=== PATIENT | female | born 1995 | race Caucasian/White ===

== ENCOUNTER → 2017-07-08 | Outpatient (CLI) | payer MEDICAID ==
[~2017-07-08] MED LIST: AMOXICILLIN 50500 MG PO; LORTAB 5/500 501 TAB PO; MAGIC MOUTHWASH1 M1 PO; NO HOME MEDICATIONS; NORCO 325 MG-7.1 TAB PO; NYSTATIN 100MU/ML PO; PEN-VEE K500 MG PO; PHENERGAN 25 TA25 MG PO; PRENATAL PLUS1 TA2 PO; ULTRAM 50MG TAB50 MG PO
[2017-07-08 13:05] LABS: BASO # 0.1 (0.0-0.2); BASO % 0.8 % (0.0-2.0); EOS # 0.2 (0.0-0.7); EOS % 1.8 % (0-4.0); GRAN # 7.4 (1.4-6.5); GRAN % 73.8 % (42.2-75.2); HEMATOCRIT 44.7 % (37.0-47.0); HEMOGLOBIN 15.1 g/dl (12.5-16.0); LYMPH # 1.7 (1.2-3.4); LYMPH % 16.5 % (20.0-51.0); MEAN CELL VOLUME 91 fl (80.0-100.0); MEAN CORPUSCULAR HEMOGLOBIN 31 pg (27.0-31.0); MEAN CORPUSCULAR HGB CONC 34 g/dl (33.0-37.0); MEAN PLATELET VOLUME 12.1 fl (7.4-10.4); MONO # 0.6 (0.1-0.6); MONO % 6.3 % (1.7-9.3); PLATELET COUNT 182 K/mm3 (130-400); RED BLOOD COUNT 4.89 M/mm3 (4.10-5.30); REDCELL DISTRIBUTION WIDTH-CV 13.6 % (11.5-14.5)
[2017-07-08 13:11] LABS: ALBUMIN 4.4 gm/dL (3.5-5.0); BILIRUBIN,TOTAL 0.3 mg/dL (0.0-1.0); CALCIUM 9.5 mg/dL (8.4-10.2); CREATININE, serum 0.69 mg/dL (0.52-1.25); POTASSIUM 4.2 mmol/L (3.4-5.0); TOTAL PROTEIN 7.7 gm/dL (6.4-8.2)
== END ==
LOC: COL.LAB 12:03
PROVIDERS: Psychiatry & Neurology Psychiatry
DX: Z79.899 Other long term (current) drug therapy (principal)

== ENCOUNTER 2018-04-18 12:32 | Emergency (ER) | payer MEDICAID ==
[~2018-04-18] VITALS: Ht 157.5 cm; Wt 43.2 kg
[2018-04-18] MEDS ORDERED: TYLENOL 325MG325 MG PO (14:11)
[2018-04-18] MEDS ORDERED: ADVIL200 MG PO (14:12)
[2018-04-18] MEDS ORDERED: LEXAPRO 10MG10 MG PO (14:13)
[2018-04-18 14:14] LABS: BASO # 0.1 (0.0-0.2); BASO % 0.9 % (0.0-2.0); EOS # 0.1 (0.0-0.7); EOS % 1.6 % (0-4.0); GRAN # 4.4 (1.4-6.5); GRAN % 53.3 % (42.2-75.2); HEMATOCRIT 40.2 % (37.0-47.0); HEMOGLOBIN 13.7 g/dl (12.5-16.0); LYMPH # 3.1 (1.2-3.4); LYMPH % 37.4 % (20.0-51.0); MEAN CELL VOLUME 92 fl (80.0-100.0); MEAN CORPUSCULAR HEMOGLOBIN 31 pg (27.0-31.0); MEAN CORPUSCULAR HGB CONC 34 g/dl (33.0-37.0); MEAN PLATELET VOLUME 10.3 fl (7.4-10.4); MONO # 0.5 (0.1-0.6); MONO % 6.6 % (1.7-9.3); PLATELET COUNT 226 K/mm3 (130-400); RED BLOOD COUNT 4.39 M/mm3 (4.10-5.30); REDCELL DISTRIBUTION WIDTH-CV 13.2 % (11.5-14.5)
[2018-04-18] MEDS ORDERED: APRESOLINE 25MG25 MG PO (14:14)
[2018-04-18 14:27] LABS: ALBUMIN 3.9 gm/dL (3.5-5.0); BILIRUBIN,TOTAL 0.4 mg/dL (0.0-1.0); CALCIUM 9.3 mg/dL (8.4-10.2); CREATININE, serum 0.64 mg/dL (0.52-1.25); POTASSIUM 3.7 mmol/L (3.4-5.0); TOTAL PROTEIN 6.8 gm/dL (6.4-8.2)
[2018-04-18 14:32] LABS: MONOSCREEN NEGATIVE
[2018-04-18 15:38] VITALS: BP 103/63; PULSE 94; TEMP 98.5
== END 2018-04-18 15:45 | disposition home or self-care (01) ==
LOC: COL.ER 12:32
PROVIDERS: Nurse Practitioner
DX: R59.0 Localized enlarged lymph nodes (principal); J06.9 Acute upper respiratory infection, unspecified; F41.9 Anxiety disorder, unspecified; F17.210 Nicotine dependence, cigarettes, uncomplicated
CPT/HCPCS: J1885; J7030

== ENCOUNTER 2018-06-23 03:23 | Emergency (ER) | payer MEDICAID ==
[~2018-06-23] VITALS: Ht 157.5 cm; Wt 46.4 kg
[~2018-06-23 03:23] MED LIST changes: +ADVIL200 MG PO; +APRESOLINE 25MG25 MG PO; +LEXAPRO 10MG10 MG PO; +TYLENOL 325MG325 MG PO
[2018-06-23 03:27] VITALS: BP 114/78; TEMP 98.5
[2018-06-23] MEDS ORDERED: ABILIFY 10MG TA10 MG PO (03:36)
[2018-06-23] MEDS ORDERED: TUSS PO (05:20)
[2018-06-23 05:25] VITALS: PULSE 84
== END 2018-06-23 05:25 | disposition home or self-care (01) ==
LOC: COL.ER 03:23
DX: J06.9 Acute upper respiratory infection, unspecified (principal); R59.9 Enlarged lymph nodes, unspecified; F17.210 Nicotine dependence, cigarettes, uncomplicated

== ENCOUNTER 2018-06-25 06:16 | Emergency (ER) | payer MEDICAID ==
[~2018-06-25] VITALS: Ht 157.5 cm; Wt 47.3 kg
[~2018-06-25 06:16] MED LIST changes: +ABILIFY 10MG TA10 MG PO; +TUSS PO
[2018-06-25 06:24] VITALS: BP 107/55; PULSE 115; TEMP 98.3
== END 2018-06-25 06:53 | disposition left against medical advice (07) ==
LOC: COL.ER 06:16
DX: R07.0 Pain in throat (principal)

== ENCOUNTER 2018-08-13 08:12 | Emergency (ER) | payer SELFPAY ==
[~2018-08-13] VITALS: Ht 157.5 cm; Wt 56.8 kg
[2018-08-13 08:17] VITALS: BP 126/94; PULSE 115; TEMP 98.8
[2018-08-13] MEDS ORDERED: AMOXICILLIN875 MG PO (09:12)
== END 2018-08-13 10:04 | disposition home or self-care (01) ==
LOC: COL.ER 08:12
DX: J02.0 Streptococcal pharyngitis (principal); F32.9 Major depressive disorder, single episode, unspecified; F41.9 Anxiety disorder, unspecified
CPT/HCPCS: J0561; J1100; J1885

== ENCOUNTER 2018-10-06 03:20 | Emergency (ER) | payer SELFPAY ==
[~2018-10-06] VITALS: Ht 157.5 cm; Wt 56.4 kg
[~2018-10-06 03:20] MED LIST changes: +AMOXICILLIN875 MG PO
[2018-10-06 03:22] VITALS: BP 115/75; TEMP 97.4
[2018-10-06 04:27] LABS: STREP SCREEN NEGATIVE
[2018-10-06] MEDS ORDERED: SUDAFED30 MG PO (04:55)
[2018-10-06 05:03] VITALS: PULSE 90
== END 2018-10-06 05:03 | disposition home or self-care (01) ==
LOC: COL.ER 03:20
PROVIDERS: Emergency Medicine
DX: J02.9 Acute pharyngitis, unspecified (principal); F17.210 Nicotine dependence, cigarettes, uncomplicated

== ENCOUNTER 2018-10-16 15:04 | Emergency (ER) | payer SELFPAY ==
[~2018-10-16] VITALS: Ht 157.5 cm; Wt 54.5 kg
[~2018-10-16 15:04] MED LIST changes: +SUDAFED30 MG PO
[2018-10-16 15:09] VITALS: BP 113/72; TEMP 97.8
[2018-10-16] MEDS ORDERED: ABILIFY 10MG TA10 MG PO (15:42)
[2018-10-16] MEDS ORDERED: LEXAPRO 10MG10 MG PO (15:42)
[2018-10-16 15:43] LABS: STREP SCREEN NEGATIVE
[2018-10-16 16:15] VITALS: PULSE 72
== END 2018-10-16 16:15 | disposition home or self-care (01) ==
LOC: COL.ER 15:04
PROVIDERS: Nurse Practitioner Primary Care
DX: J02.9 Acute pharyngitis, unspecified (principal); F31.9 Bipolar disorder, unspecified; F17.210 Nicotine dependence, cigarettes, uncomplicated

== ENCOUNTER 2018-10-25 20:38 | Emergency (ER) | payer SELFPAY ==
[~2018-10-25] VITALS: Ht 157.5 cm; Wt 51.8 kg
[2018-10-25 22:23] LABS: BASO # 0.1 (0.0-0.2); BASO % 1.1 % (0.0-2.0); EOS # 0.3 (0.0-0.7); GRAN # 6.8 (1.4-6.5); GRAN % 60.7 % (42.2-75.2); HEMOGLOBIN 15.7 g/dl (12.5-16.0); LYMPH # 3.3 (1.2-3.4); LYMPH % 29.7 % (20.0-51.0); MEAN CELL VOLUME 92 fl (80.0-100.0); MEAN CORPUSCULAR HEMOGLOBIN 31 pg (27.0-31.0); MEAN CORPUSCULAR HGB CONC 34 g/dl (33.0-37.0); MEAN PLATELET VOLUME 11.1 fl (7.4-10.4); MONO # 0.6 (0.1-0.6); MONO % 5.1 % (1.7-9.3); PLATELET COUNT 253 K/mm3 (130-400); RED BLOOD COUNT 5.01 M/mm3 (4.10-5.30); REDCELL DISTRIBUTION WIDTH-CV 13.4 % (11.5-14.5)
[2018-10-25 22:35] LABS: COLLECTION METHOD CLEAN CATCH
[2018-10-25 22:36] LABS: ALANINE AMINOTRANSFERASE 13 U/L (9-52); ALBUMIN 4.2 gm/dL (3.5-5.0); ALKALINE PHOSPHATASE 93 U/L (50-136); ANION GAP 9 mmol/L (7-16); AST,SGOT 28 U/L (15-37); BILIRUBIN,TOTAL 0.4 mg/dL (0.0-1.0); BLOOD UREA NITROGEN 16 mg/dL (7-17); C-REACTIVE PROTEIN < 0.5 mg/dL (0.0-0.9); CALCIUM 9.8 mg/dL (8.4-10.2); CARBON DIOXIDE 22 mmol/L (22-30); CHLORIDE 105 mmol/L (98-107); CREATININE, serum 0.61 (0.52-1.25); GLUCOSE 84 mg/dL (74-106); LIPASE 100 U/L (23-300); POTASSIUM 4.3 mmol/L (3.4-5.0); SODIUM 137 mmol/L (137-145); TOTAL PROTEIN 7.9 gm/dL (6.4-8.2)
[2018-10-25 22:42] LABS: MUCOUS Present /lpf; PH 5 (5-8); URINE APPEARANCE Hazy; URINE BACTERIA None Seen /hpf; URINE BILIRUBIN Negative (NEGATIVE); URINE BLOOD Negative (NEGATIVE); URINE COLOR Yellow; URINE GLUCOSE Negative (NEGATIVE); URINE KETONE Trace (NEGATIVE); URINE LEUKOCYTE ESTERASE Negative (NEGATIVE); URINE NITRATE Negative (NEGATIVE); URINE PROTEIN(semi-quant) Negative (NEGATIVE); URINE UROBILINOGEN Negative (NEGATIVE)
[2018-10-26 01:03] VITALS: BP 109/67; PULSE 77; TEMP 97.8
== END 2018-10-26 01:05 | disposition home or self-care (01) ==
LOC: COL.ER 20:38
PROVIDERS: Nurse Practitioner
DX: R10.33 Periumbilical pain (principal); F32.9 Major depressive disorder, single episode, unspecified; F41.9 Anxiety disorder, unspecified; F17.210 Nicotine dependence, cigarettes, uncomplicated
CPT/HCPCS: J1885; J7030

== ENCOUNTER 2018-10-29 15:45 | Emergency (ER) | payer SELFPAY ==
[~2018-10-29] VITALS: Ht 157.5 cm; Wt 51.8 kg
[2018-10-29 15:56] VITALS: BP 118/79; PULSE 101; TEMP 98.2
== END 2018-10-29 18:35 | disposition home or self-care (01) ==
LOC: COL.ER 15:45
DX: S00.83XA Contusion of other part of head, initial encounter (principal); F32.9 Major depressive disorder, single episode, unspecified; F41.9 Anxiety disorder, unspecified; Z23 Encounter for immunization; F17.210 Nicotine dependence, cigarettes, uncomplicated; Y04.8XXA Assault by other bodily force, initial encounter

== ENCOUNTER 2018-12-08 20:32 | Emergency (ER) | payer SELFPAY ==
[~2018-12-08] VITALS: Ht 157.5 cm; Wt 54.5 kg
[2018-12-08 20:48] VITALS: BP 129/83; TEMP 98.3
[2018-12-08 22:52] LABS: BASO # 0.1 (0.0-0.2); BASO % 0.6 % (0.0-2.0); EOS # 0.4 (0.0-0.7); GRAN # 10.5 (1.4-6.5); GRAN % 78.7 % (42.2-75.2); HEMATOCRIT 44.2 % (37.0-47.0); LYMPH # 1.7 (1.2-3.4); LYMPH % 12.8 % (20.0-51.0); MEAN CELL VOLUME 91 fl (80.0-100.0); MEAN CORPUSCULAR HEMOGLOBIN 31 pg (27.0-31.0); MEAN CORPUSCULAR HGB CONC 34 g/dl (33.0-37.0); MONO # 0.6 (0.1-0.6); MONO % 4.5 % (1.7-9.3); PLATELET COUNT 233 K/mm3 (130-400); RED BLOOD COUNT 4.85 M/mm3 (4.10-5.30)
[2018-12-08 23:13] LABS: ALBUMIN 4.2 gm/dL (3.5-5.0); BILIRUBIN,TOTAL 0.4 mg/dL (0.0-1.0); C-REACTIVE PROTEIN 2.2 mg/dL (0.0-0.9); CALCIUM 9.7 mg/dL (8.4-10.2); CREATININE, serum 0.68 (0.52-1.25); POTASSIUM 3.9 mmol/L (3.4-5.0); TOTAL PROTEIN 7.9 gm/dL (6.4-8.2)
[2018-12-08] MEDS ORDERED: ZITHROMAX 250M250 MG PO (23:19)
[2018-12-08] MEDS ORDERED: PREDNISONE20 MG PO (23:19)
[2018-12-09 00:06] VITALS: PULSE 96
== END 2018-12-09 00:06 | disposition home or self-care (01) ==
LOC: COL.ER 20:32
PROVIDERS: Emergency Medicine
DX: J45.909 Unspecified asthma, uncomplicated (principal); F17.210 Nicotine dependence, cigarettes, uncomplicated
CPT/HCPCS: J7512

== ENCOUNTER 2018-12-11 11:01 | Emergency (ER) | payer SELFPAY ==
[~2018-12-11] VITALS: Ht 157.5 cm; Wt 54.5 kg
[~2018-12-11 11:01] MED LIST changes: +PREDNISONE20 MG PO; +ZITHROMAX 250M250 MG PO
[2018-12-11 11:06] VITALS: TEMP 98.1
[2018-12-11] MEDS ORDERED: VENTOLIN0.09 MG IH (11:19)
[2018-12-11 12:02] LABS: BASO % 0.4 % (0.0-2.0); EOS % 0.1 % (0-4.0); GRAN # 5.7 (1.4-6.5); GRAN % 73.1 % (42.2-75.2); HEMATOCRIT 40.1 % (37.0-47.0); HEMOGLOBIN 13.4 g/dl (12.5-16.0); LYMPH # 1.6 (1.2-3.4); LYMPH % 20.4 % (20.0-51.0); MEAN CELL VOLUME 91 fl (80.0-100.0); MEAN CORPUSCULAR HEMOGLOBIN 30 pg (27.0-31.0); MEAN CORPUSCULAR HGB CONC 33 g/dl (33.0-37.0); MEAN PLATELET VOLUME 10.9 fl (7.4-10.4); MONO # 0.5 (0.1-0.6); MONO % 5.7 % (1.7-9.3); PLATELET COUNT 253 K/mm3 (130-400); RED BLOOD COUNT 4.41 M/mm3 (4.10-5.30)
[2018-12-11 12:44] VITALS: BP 108/77; PULSE 68
== END 2018-12-11 13:03 | disposition home or self-care (01) ==
LOC: COL.ER 11:01
PROVIDERS: Physician Assistant
DX: R07.89 Other chest pain (principal); J45.909 Unspecified asthma, uncomplicated; F41.9 Anxiety disorder, unspecified; F17.210 Nicotine dependence, cigarettes, uncomplicated

== ENCOUNTER 2018-12-11 20:44 | Emergency (ER) | payer SELFPAY ==
[~2018-12-11] VITALS: Ht 157.5 cm; Wt 54.5 kg
[~2018-12-11 20:44] MED LIST changes: +VENTOLIN0.09 MG IH
[2018-12-11 20:57] VITALS: TEMP 97.9
[2018-12-11 23:25] VITALS: BP 157/89; PULSE 101
== END 2018-12-11 23:25 | disposition home or self-care (01) ==
LOC: COL.ER 20:44
DX: R07.89 Other chest pain (principal); F41.9 Anxiety disorder, unspecified; F17.210 Nicotine dependence, cigarettes, uncomplicated
CPT/HCPCS: J2060

== ENCOUNTER 2019-04-26 16:22 | Emergency (ER) | payer MEDICAID ==
[~2019-04-26] VITALS: Ht 157.5 cm; Wt 52.3 kg
[2019-04-26 16:25] VITALS: BP 122/78; TEMP 98.7
[2019-04-26] MEDS ORDERED: ZITHROMAX Z PA250 MG PO (17:28)
[2019-04-26 17:34] VITALS: PULSE 100
== END 2019-04-26 17:34 | disposition home or self-care (01) ==
LOC: COL.ER 16:22
DX: J20.9 Acute bronchitis, unspecified (principal)

== ENCOUNTER 2020-02-14 18:59 | Emergency (ER) | payer MEDICAID ==
[~2020-02-14] VITALS: Ht 157.5 cm; Wt 54.5 kg
[~2020-02-14 18:59] MED LIST changes: +ZITHROMAX Z PA250 MG PO
[2020-02-14 19:05] VITALS: BP 110/85; PULSE 105; TEMP 98.3
== END 2020-02-14 19:45 | disposition home or self-care (01) ==
LOC: COL.ER 18:59
DX: S02.5XXA Fracture of tooth (traumatic), initial encounter for closed fracture (principal); K02.9 Dental caries, unspecified; F32.9 Major depressive disorder, single episode, unspecified; F41.9 Anxiety disorder, unspecified; F17.210 Nicotine dependence, cigarettes, uncomplicated; X58.XXXA Exposure to other specified factors, initial encounter

== ENCOUNTER 2020-03-01 20:13 | Emergency (ER) | payer MEDICAID ==
[~2020-03-01] VITALS: Ht 157.5 cm; Wt 52.7 kg
[2020-03-01 20:50] VITALS: BP 11/74; TEMP 98.1
[2020-03-01 21:30] LABS: COLLECTION METHOD CLEAN CATCH
[2020-03-01 21:39] LABS: MUCOUS Present /lpf; PH 6 (5-8); URINE APPEARANCE Hazy; URINE BACTERIA None Seen /hpf; URINE BILIRUBIN Negative (NEGATIVE); URINE BLOOD Negative (NEGATIVE); URINE COLOR Yellow; URINE GLUCOSE Negative (NEGATIVE); URINE KETONE Negative (NEGATIVE); URINE LEUKOCYTE ESTERASE 1+ (NEGATIVE); URINE NITRATE Negative (NEGATIVE); URINE PROTEIN(semi-quant) Negative (NEGATIVE)
[2020-03-01 21:45] LABS: TRICYCLIC ANTIDEPRESS URINE NEGATIVE
[2020-03-01 22:44] VITALS: PULSE 98
== END 2020-03-01 22:44 | disposition home or self-care (01) ==
LOC: COL.ER 20:13
PROVIDERS: Emergency Medicine
DX: T76.21XA Adult sexual abuse, suspected, initial encounter (principal); F15.90 Other stimulant use, unspecified, uncomplicated; Z32.02 Encounter for pregnancy test, result negative

== ENCOUNTER 2020-11-15 20:49 | Emergency (ER) | payer MEDICAID ==
[~2020-11-15] VITALS: Ht 157.5 cm; Wt 52.3 kg
[2020-11-15 21:08] VITALS: TEMP 97
[2020-11-15] MEDS ORDERED: ILOTYCIN5 MG/GM OP (22:57)
[2020-11-15 23:24] VITALS: BP 114/70; PULSE 78
== END 2020-11-15 23:24 | disposition home or self-care (01) ==
LOC: COL.ER 20:49
DX: H10.9 Unspecified conjunctivitis (principal); F17.210 Nicotine dependence, cigarettes, uncomplicated

== ENCOUNTER 2021-12-03 22:23 | Emergency (ER) | payer MEDICAID ==
[~2021-12-03] VITALS: Ht 157.5 cm; Wt 52.3 kg
[~2021-12-03 22:23] MED LIST changes: +ILOTYCIN5 MG/GM OP
[2021-12-03 22:52] VITALS: TEMP 97.6
[2021-12-03] MEDS ORDERED: CEPHALEXIN500 M1 PO (23:16)
[2021-12-03 23:36] VITALS: BP 117/78; PULSE 98
== END 2021-12-03 23:40 | disposition home or self-care (01) ==
LOC: COL.ER 22:23
DX: L02.215 Cutaneous abscess of perineum (principal); F17.290 Nicotine dependence, other tobacco product, uncomplicated; Z28.310 Unvaccinated for COVID-19